=== PATIENT | female | born 1960 ===

== ENCOUNTER 2020-01-31 05:37 | Day surgery (SDC) | payer OTHER ==
[~2020-01-31] VITALS: Ht 162.6 cm; Wt 59.0 kg
[~2020-01-31 05:37] MED LIST: ALLERGY RELIEF10 M3 PO; ALLOPURINOL300 MG PO; CRESTOR20 MG PO; HUMALOG100 UNIT/2; HYDRALAZINE HCL50 MG PO; LANTUS SOL100 UNIT/1; PLAVIX75 MG PO; TOPROL XL50 M1 PO; VALSARTAN-HCTZ1 EAC3 PO
[2020-01-31] MEDS ORDERED: LATANOPROST2.5 ML (16:00)
[2020-01-31] MEDS ORDERED: LEVOBUNOLOL HCL5 ML (16:01)
[2020-02-01] MEDS ORDERED: DOXYCYCLINE HY100 MG PO (08:51)
[2020-02-01] MEDS ORDERED: PLAVIX75 MG PO (08:52)
[2020-02-01] MEDS ORDERED: TOPROL XL50 M1 PO (08:54)
== END 2020-02-01 08:00 | disposition home or self-care (01) ==
LOC: CIR.AMB 05:37 → ADM 09:15 → EDBD 09:15 → CIR.AMB 09:39 → OB/GYN 09:39 → O/R 09:39 → OB/GYN 10:51 → CIR.AMB 02-01 08:00 → OB/GYN 02-01 09:58
PROVIDERS: ATTEND Obstetrics & Gynecology
DX: N84.0 Polyp of corpus uteri (principal); N95.0 Postmenopausal bleeding; I16.0 Hypertensive urgency